=== PATIENT | male | born 1980 | race Caucasian/White ===

== ENCOUNTER 2025-09-11 19:58 | Inpatient (IN) | payer SELFPAY ==
[~2025-09-11] VITALS: Ht 165.1 cm; Wt 92.0 kg
--- NOTE | 2025-09-11 21:05 | ECG ---
[facility] Test Date: 2025-09-11 Test Time: 21:03:39 Pat Name: PATY STOCKTON Department: [facility] ED Room: 0287T Gender: M Procedural Nurse: CRISTOPHER : 1980 Requested By: MARK MONTALVO Order Number: [id number] Reading MD: Husam Colmenares Measurements Intervals [place] Rate: 67 P: 10 TX: 161 QRS: 19 QRSD: 88 T: 30 QT: 376 QTc: 397 Interpretive Statements Sinus rhythm Electronically Signed On 09-12-2025 17:26:31 PST by Husam Colmenares Please click the below link to view image of tracing.
--- NOTE | 2025-09-11 21:06 | ED.PDOC ---
HPI Comments HPI: Patient reports on having had chest pain for the past three days and has been worsening since associated with a cough, shortness a breath and left arm pain which started today, prompting him to come to the ER. Past Medical History: Tobacco abuse Past Surgical History: Appendectomy Social History: Tobacco use (last use was two days ago), occasional alcohol use Allergies: Penicillin, tetracycline Family history: Neither parents have any CAD but grandparent has heart problems HPI: Poor Historian. 45-year-old male presents to emergency department for evaluation of midsternal chest pain for the last three days constant with the one episode of cough. Patient complains of some associated mild shortness of breath when he was coughing. REVIEW OF SYSTEMS: CONSTITUTIONAL: Denies acute: fever, diaphoresis, chills, generalized weakness. HEAD: Denies acute: headache, photophobia Eyes: Denies acute: Double vision, vision loss, eye pain, eye discharge. EARS: Denies acute: tinnitus, hearing loss, ear discharge, ear pain, THROAT: Denies acute: sore throat, swelling, difficulty swallowing , pain with swallowing, change in voice. NECK: Denies acute: neck pain, neck swelling, stiff neck. HEART: Denies acute : palpitations, LUNGS: Denies acute: wheezing, cough, hemoptysis ABDOMEN: Denies acute: abdominal pain, Nausea, Vomiting, diarrhea, melena , hematemesis, hematochezia SKIN: Denies acute: rash, redness, lesions, itchiness. EXTREMITIES: Denies acute: calf pain, numbness, tingling, weakness, denies pain in extremity. Denies acute: Low back pain. Neuro: Denies acute: focal neurological deficit, motor or sensory focal neurological deficit, tremors, seizure like activity, confusion, dizziness, change in mental status, loss of bowel or bladder function, cauda equina like symptoms. : Denies acute: dysuria, hematuria, flank pain, increase in urinary frequency. PSYCH: Denies acute: hallucination, suicidal ideation, homicidal ideation. PHYSICAL EXAM: General: ----no----acute distress, awake and alert. Head: normocephalic, atraumatic. No raccoon's eyes, no traylor sign. Neck: supple, trachea is midline, no swelling. Throat: Normal phonation. Eyes:, no erythema, no purulent discharge, no proptosis, no icterus. Heart: regular rate, regular rhythm, no significant murmur appreciated. Lungs: no apparent respiratory distress, Able to speak in full sentences. No wheezing, no rhonchi, no crackles. No stridors Clear to auscultation bilaterally. Abdomen: non tender to palpation, non distended, soft, no guarding, no rebound, + bowel sounds. Neuro: Awake, Alert, oriented to name, self, situation, follows commands GCS=15. Speech is normal. Skin: no petechia, no purpura, no cyanosis, non-pale, not jaundice. Lower extremities: --no - Pitting edema no deformity, no focal swelling, no calf TTP. Makes eye contact. moves all four extremities. Face: no apparent facial droop. Ambulating in the ED independently. ED COURSE: DISCLAIMER: This medical document was created using an electronic medical record system with voice recognition software and computerized dictation system. Although this document has been carefully reviewed, there might still be some phonetic and typographical errors. Occasional wrong-word or "sound-alike" substitutions may have occurred due to the inherent limitations of voice recognition software. These areas are purely typographical due to imperfections of the software programs and do not reflect any compromise in the patient's medical care. Please read the chart carefully and recognize, using context, where these substitutions have occurred. Chief Complaint: Shortness of Breath Time Seen by MD: 21:00 Reviewed Notes: Nurses Notes, Medications, Allergies Allergies: Coded Allergies: Penicillins (Verified Allergy, Unknown, 09/11/25) Tetracycline (Verified Allergy, Unknown, 09/11/25) Information Source: Patient Mode of Arrival: Ambulatory Was a procedure done? Was a procedure done?: No X-Ray, Labs, Meds, VS Vital Signs Date Time Temp Pulse Resp B/P (MAP) Pulse Ox O2 Delivery O2 Flow Rate FiO2 09/11/25 21:03 67 09/11/25 20:02 98.0 78 16 112/81 98 98.0 Lab Test 09/11/25 21:08 Range/Units White Blood Count 5.9 4.4-10.8 10^3/uL Red Blood Count 4.76 4.5-5.90 10^6/uL Hemoglobin 15.3 13.5-17.5 g/dL Hematocrit 43.3 41.0-53.0 % Mean Corpuscular Volume 91.0 80.0-100.0 fL Mean Corpuscular Hemoglobin 32.1 H 28.0-32.0 pg Mean Corpuscular Hemoglobin Concent 35.3 32.0-36.0 g/dL Red Cell Distribution Width 12.5 11.8-14.3 % Platelet Count 339 140-450 10^3/uL Mean Platelet Volume 6.6 L 6.9-10.8 fL Neutrophils (%) (Auto) 49.9 37.0-80.0 % Lymphocytes (%) (Auto) 39.2 10.0-50.0 % Monocytes (%) (Auto) 8.4 0.0-12.0 % Eosinophils (%) (Auto) 1.4 0.0-7.0 % Basophils (%) (Auto) 1.1 0.0-2.0 % Neutrophils # (Auto) 2.9 1.6-8.6 10 ^3/uL Lymphocytes # (Auto) 2.3 0.4-5.4 10 ^3/uL Monocytes # (Auto) 0.5 0-1.3 10 ^3/uL Eosinophils # (Auto) 0.1 0-0.8 10 ^3/uL Basophils # (Auto) 0.1 0-0.2 10 ^3/uL Nucleated Red Blood Cells 0.1 % D-Dimer, Quantitative Pending Sodium Level Pending Potassium Level Pending Chloride Level Pending Carbon Dioxide Level Pending Anion Gap Pending Blood Urea Nitrogen Pending Creatinine Pending Glomerular Filtration Rate Calc Pending BUN/Creatinine Ratio Pending Serum Glucose Pending Calcium Level Pending Total Bilirubin Pending Aspartate Amino Transferase (AST) Pending Alanine Aminotransferase (ALT) Pending Alkaline Phosphatase Pending Troponin I High Sensitivity Pending B-Type Natriuretic Peptide Pending Total Protein Pending Albumin Pending Time of 1ST Reevaluation: 21:30 Reevaluation 1ST: Unchanged Patient Education/Counseling: Diagnosis, Treatment Family Education/Counseling: No Family Present SEPSIS Sepsis Screen Date sepsis recognized/suspect: Sep 11, 2025 Time Sepsis recognized/suspect: 2003 Recent Procedure: No On Antibiotic Therapy: No Respiratory Rate >20: No Heart Rate >90: No Temp<36 C (96.8 F) or >38.3 C: No SBP <90 or MAP <65 mmHG: No New Acute Mental Status Change: No Is the patient on CPAP, BIPAP,: No Physician Orders Delivery Table Operator (09/11/25 ) B-Type Natriuretic Peptide (09/11/25 20:59) Comprehensive Metabolic Panel (09/11/25 20:59) D-Dimer (09/11/25 20:59) Troponin-I Hs (09/11/25 20:59) Chest Portable (09/11/25 20:59) Troponin-I Hs (09/11/25 21:59) Troponin-I Hs (09/11/25 23:59) Electrocardigram (09/11/25 21:59) Electrocardigram (09/11/25 23:59) Vital Signs Date Time Temp Pulse Resp B/P (MAP) Pulse Ox O2 Delivery O2 Flow Rate FiO2 09/11/25 21:03 67 09/11/25 20:02 98.0 78 16 112/81 98 98.0 Laboratory Tests Test 09/11/25 21:08 White Blood Count 5.9 10^3/uL (4.4-10.8) Critical Care Note Critical Care Time?: No I personally scribed for MARK MONTALVO DO ([email or web address]) on 09/11/25 at 21:06. Electronically submitted by Bandar Guevara ([email or web address]). MARK MONTALVO DO Sep 11, 2025 21:06
[2025-09-11 21:25] LABS: Hematocrit 43.3 % (41.0-53.0); Hemoglobin 15.3 g/dL (13.5-17.5); Mean Corpuscular Hemoglobin 32.1 pg (28.0-32.0); Mean Corpuscular Volume 91.0 fL (80.0-100.0); Nucleated Red Blood Cells % 0.1 %
--- NOTE | 2025-09-11 21:45 | DVH ---
CLINICAL HISTORY: Shortness of breath/chest pain. TECHNIQUE: Single frontal view of the chest was obtained. COMPARISON: None available. FINDINGS: DEVICES/LINES/TUBES: None. LUNGS: Clear. PLEURA: No pneumothorax or pleural effusion. MEDIASTINUM/OTHER: Normal heart size and mediastinal contours. Trachea is midline. BONES: Unremarkable. UPPER ABDOMEN: Unremarkable. IMPRESSION: No acute cardiopulmonary process.
[2025-09-11 21:54] LABS: Alanine Aminotransferase 52 U/L (7-40); Albumin 4.5 g/dL (3.2-4.8); Alkaline Phosphatase 77 U/L (46-116); Anion Gap 9 (5-15); BUN/Creatinine Ratio 11.8 (10.0-20.0); Bilirubin, Total 0.6 mg/dL (0.2-1.0); Blood Urea Nitrogen 11 mg/dL (9-23); Calcium 9.8 mg/dL (8.7-10.4); Carbon Dioxide 27 mmol/L (20-31); Chloride 106 mmol/L (98-107); Glucose 99 mg/dL (74-106); Potassium 4.2 mmol/L (3.5-5.1); Sodium 142 mmol/L (136-145); Total Protein 7.5 g/dL (5.7-8.2)
--- NOTE | 2025-09-11 22:06 | ECG ---
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
[2025-09-11 22:20] VITALS: PULSE 76; RESP 16; O2SAT 96
[2025-09-11] MEDS: ASPirin-EC 325mg tab PO ONE (22:45)
[2025-09-11] MEDS: IPRATROPIUM BROM 0.5 MG/2.5ML INH SOL NEB ONE (22:45)
[2025-09-11] MEDS: ALBUTEROL SULF 2.5 MG/0.5ML(0.5%) NEB SOLN NEB ONE (22:45)
[2025-09-11] MEDS: IPRATROPIUM BROM 0.5 MG/2.5ML INH SOL ONE (22:52)
[2025-09-11] MEDS: ALBUTEROL SULF 2.5 MG/0.5ML(0.5%) NEB SOLN ONE (22:52)
[2025-09-12] VITALS (8 sets, daily range): BP systolic 113–135; BP diastolic 82–93; PULSE 49–75; RESP 17–18; TEMP 97.1–98.3; O2SAT 97–99
--- NOTE | 2025-09-12 04:44 | DVHHP2 ---
History of Present Illness Reason for Visit: Chest pain History of Present Illness 45-year-old male presents for evaluation of chest pain. Patient reports a three day history of developing chest pain. Patient reports developing left-sided sharp chest pain radiating to his left arm while walking his dog. Denies any previous medical problems. The patient is not currently taking any medications. He also reports having some shortness for breath with dizziness. Past Medical History Denies Past Surgical History Denies Family History Noncontributory Smoke: <1 pack per day ALCOHOL: occassional Drugs: None Lives: with Family Review of Systems Review of Systems Review of systems are currently negative otherwise addressed in HPI. Allergies: Coded Allergies: Penicillins (Verified Allergy, Unknown, 09/11/25) Tetracycline (Verified Allergy, Unknown, 09/11/25) Exam Vital Signs Vital Signs Date Time Temp Pulse Resp B/P (MAP) Pulse Ox O2 Delivery O2 Flow Rate FiO2 09/12/25 02:26 98.1 67 16 128/86 (100) 97 98.1 09/11/25 23:12 Room Air* 0 21 Exam Gen: 45-year-old male in mild distress Skin: Warm, dry, normal color and texture, no rash. HEENT: Normocephalic atraumatic, mucous membranes moist and pink. Neck: Cervical and supraclavicular nodes normal without enlargement, trachea is midline, thyroid gland is normal without masses. Pulmonary: Clear to auscultation and percussion bilaterally. Cardiac: Regular rate and rhythm. No murmur Abdomen: Soft, nontender, nondistended, bowel sounds present all 4 quadrants, no guarding, no rigidity, no organomegaly. Extremities: No cyanosis, clubbing, no edema Neuro: Cranial nerves II through XII grossly intact, normal affect and speech, no focal motor deficits. Labs/Xrays AGE / SEX: 45 / M ADM STATUS: REG ER SERVICE 58 ORDERING PHYSICIAN: MARK MONTALVO DO PROCEDURE(s): CXRP - CHEST PORTABLE REASON: sob/cp ORDER NUMBER(s): [id number], ACCESSION NUMBER(s): [id number] CLINICAL HISTORY: Shortness of breath/chest pain. TECHNIQUE: Single frontal view of the chest was obtained. COMPARISON: None available. FINDINGS: DEVICES/LINES/TUBES: None. LUNGS: Clear. PLEURA: No pneumothorax or pleural effusion. MEDIASTINUM/OTHER: Normal heart size and mediastinal contours. Trachea is midline. BONES: Unremarkable. UPPER ABDOMEN: Unremarkable. IMPRESSION: No acute cardiopulmonary process. Labs Test 09/11/25 22:01 09/11/25 21:08 Range/Units Troponin I High Sensitivity < 3 L </=54 ng/L White Blood Count 5.9 4.4-10.8 10^3/uL Red Blood Count 4.76 4.5-5.90 10^6/uL Hemoglobin 15.3 13.5-17.5 g/dL Hematocrit 43.3 41.0-53.0 % Mean Corpuscular Volume 91.0 80.0-100.0 fL Mean Corpuscular Hemoglobin 32.1 H 28.0-32.0 pg Mean Corpuscular Hemoglobin Concent 35.3 32.0-36.0 g/dL Red Cell Distribution Width 12.5 11.8-14.3 % Platelet Count 339 140-450 10^3/uL Mean Platelet Volume 6.6 L 6.9-10.8 fL Neutrophils (%) (Auto) 49.9 37.0-80.0 % Lymphocytes (%) (Auto) 39.2 10.0-50.0 % Monocytes (%) (Auto) 8.4 0.0-12.0 % Eosinophils (%) (Auto) 1.4 0.0-7.0 % Basophils (%) (Auto) 1.1 0.0-2.0 % Neutrophils # (Auto) 2.9 1.6-8.6 10 ^3/uL Lymphocytes # (Auto) 2.3 0.4-5.4 10 ^3/uL Monocytes # (Auto) 0.5 0-1.3 10 ^3/uL Eosinophils # (Auto) 0.1 0-0.8 10 ^3/uL Basophils # (Auto) 0.1 0-0.2 10 ^3/uL Nucleated Red Blood Cells 0.1 % D-Dimer, Quantitative < 0.19 0.0-0.49 mg/L FEU Sodium Level 142 136-145 mmol/L Potassium Level 4.2 3.5-5.1 mmol/L Chloride Level 106 98-107 mmol/L Carbon Dioxide Level 27 20-31 mmol/L Anion Gap 9 5-15 Blood Urea Nitrogen 11 9-23 mg/dL Creatinine 0.93 0.700-1.30 mg/dL Glomerular Filtration Rate Calc 102 >90 mL/min BUN/Creatinine Ratio 11.8 10.0-20.0 Serum Glucose 99 74-106 mg/dL Calcium Level 9.8 8.7-10.4 mg/dL Total Bilirubin 0.6 0.2-1.0 mg/dL Aspartate Amino Transferase (AST) 22 13-40 U/L Alanine Aminotransferase (ALT) 52 H 7-40 U/L Alkaline Phosphatase 77 46-116 U/L B-Type Natriuretic Peptide 1.95 0-100 pg/mL Total Protein 7.5 5.7-8.2 g/dL Albumin 4.5 3.2-4.8 g/dL SEPSIS Sepsis Screen Date sepsis recognized/suspect: Sep 11, 2025 Time Sepsis recognized/suspect: 2219 Recent Procedure: No On Antibiotic Therapy: No Respiratory Rate >20: No Heart Rate >90: No Temp<36 C (96.8 F) or >38.3 C: No SBP <90 or MAP <65 mmHG: No New Acute Mental Status Change: No Is the patient on CPAP, BIPAP,: No Physician Orders Store Detective (09/11/25 ) Chest Portable (09/11/25 20:59) Electrocardigram (09/11/25 23:59) Thyroid Stimulating Hormone (09/12/25 04:38) Aspirin Tablet (09/12/25 10:00) Admit (09/12/25 04:38) Temazepam (Restoril) (09/12/25 04:45) Ondansetron Hcl (Zofran) (09/12/25 04:45) Cardiac Diet-2gna,Lofat,Lochol (09/12/25 Breakfast) Echo 2d Mode Cardiac Dop (09/12/25 04:38) Condition: Fair (09/12/25 04:38) Acetaminophen Tablet (Tylenol Tablet) (09/12/25 04:45) Bedrest With Bathroom Privileg (09/12/25 04:38) Nitroglycerin Sublingual (Ntrostat Subli (09/12/25 04:45) Morphine Sulfate Injection (09/12/25 04:45) Stat Ekg For Chest Pain (09/12/25 04:38) Notify Md Of Changes From Base (09/12/25 04:38) Extractor Machine Operator For 24 Hours (09/12/25 04:38) Emergency Dysrhythmia Protocol (09/12/25 04:38) Rhythm Strips Once Every Shift (09/12/25 04:38) Oxygen By Nasal Cannula (09/12/25 04:38) Vital Signs Date Time Temp Pulse Resp B/P (MAP) Pulse Ox O2 Delivery O2 Flow Rate FiO2 09/12/25 02:26 98.1 67 16 128/86 (100) 97 98.1 09/11/25 23:12 20 100 Room Air* 0 21 09/11/25 22:20 98.3 75 15 137/76 (96) 98 98.3 09/11/25 22:20 76 16 96 Room Air* 0 21 09/11/25 22:04 70 09/11/25 21:03 67 Laboratory Tests Test 09/11/25 21:08 White Blood Count 5.9 10^3/uL (4.4-10.8) Medications Medications Dose Ordered Sig/Saloni Route Start Time Stop Time Status Last Admin Dose Admin Aspirin 325 mg ONCE ONCE PO 09/11/25 21:00 09/11/25 21:02 DC 09/11/25 22:45 325 MG Assessment/Plan Assessment/Plan Assessment Chest pain rule out ACS Plan Admit the patient to telemetry to the hospitalist Echocardiogram pending Continue treatment per orders. Plan discussed with: Patient My Orders Orders - FAITH FOX Procedure Category Date Status Time Thyroid Stimulating LAB 09/12/25 Transmitted Hormone 04:38 Aspirin Tablet PHA 09/12/25 Transmitted 10:00 Admit ADMIT 09/12/25 Transmitted 04:38 Temazepam (Restoril) PHA 09/12/25 Transmitted 04:45 Ondansetron Hcl PHA 09/12/25 Transmitted (Zofran) 04:45 Cardiac DIET 09/12/25 Transmitted Diet-2gna,Lofat,Lochol Breakfast Echo 2d Mode Cardiac US 09/12/25 Logged DOP 04:38 Condition: Fair MINAL 09/12/25 In Process 04:38 Acetaminophen Tablet PHA 09/12/25 Transmitted (Tylenol Tablet) 04:45 Bedrest With Bathroom MINAL 09/12/25 In Process Privileg 04:38 Nitroglycerin [facility] 09/12/25 Transmitted Sublingual (Ntrostat 04:45 Morphine Sulfate PHA 09/12/25 Transmitted Injection 04:45 Stat Ekg For Chest [facility] 09/12/25 In Process Pain 04:38 Notify Md Of Changes [facility] 09/12/25 In Process From Base 04:38 Extractor Machine Operator For [facility] 09/12/25 In Process 24 Hours 04:38 Emergency Dysrhythmia [facility] 09/12/25 In Process Protocol 04:38 Rhythm Strips Once [facility] 09/12/25 In Process Every Shift 04:38 Oxygen By Nasal RT 09/12/25 Transmitted Cannula 04:38 Date of Service: Sep 12, 2025 Billing Provider: FAITH FOX Common Visit Codes: [id number] INP/OBS CARE (HIGH) FAITH FOX Sep 12, 2025 04:44
[2025-09-12] MEDS ORDERED: NITROGLYCERIN 0.4 MG SL TAB SL PRN (04:45)
[2025-09-12] MEDS ORDERED: ONDANSETRON HCL 4 MG/2 ML VIAL IV PRN (04:45)
[2025-09-12] MEDS ORDERED: TEMAZEPAM 15 MG CAP PO PRN (04:45)
[2025-09-12] MEDS ORDERED: MORPHINE SULFATE 4 MG/ML SYR/VIAL IV PRN (04:45)
[2025-09-12] MEDS: ASPirin-EC 81 mg tab PO ONE (12:50)
--- NOTE | 2025-09-12 14:19 | DVHINCON2 ---
Date Seen: Sep 12, 2025 Referring Physician MD Martita Reason for Consultation Chest pain History of Present Illness This is a 45-year-old male patient who presents to emergency room with chief complaint of chest pain. The patient reports that the chest pain began approximately three days ago. He describes it as unprovoked, intermittent, pressure-like and also sharp in nature, left-sided with radiation down his left arm. He denies any aggravating or alleviating factors. Associated symptoms include occasional shortness of breath. Serial troponin levels have been negative. Initial twelve lead electrocardiogram reveals normal sinus rhythm without any significant ST segment changes. Significant past medical history includes nicotine use and obesity. The patient reports significant familial cardiac history including his maternal grandfather who underwent a quadruple vessel CABG. The patient denies any previous cardiac workup. Past Medical History Past medical history reviewed. No other significant than mentioned above. Past Surgical History Appendectomy Family History: Coronary artery bypass graft maternal grandfather, Onset:50's - 60 Family History Family history reviewed. Social History Vapes nicotine Denies illicit drug use Admits to social alcohol use Allergies: Coded Allergies: Penicillins (Verified Allergy, Unknown, 09/11/25) Tetracycline (Verified Allergy, Unknown, 09/11/25) Home Meds Denies taking any prescribed medications or [id number] medications Current Medications Current Medications Medications (Trade) Dose Ordered Sig/Saloni Route PRN Reason Start Time Stop Time Status Last Admin Aspirin 81 mg DAILY PO 09/12/25 10:00 09/12/25 12:31 DC Temazepam (Restoril) 15 mg QHSP PRN PO FOR INSOMNIA 09/12/25 04:45 Ondansetron HCl (Zofran) 4 mg Q4HP PRN IV NAUSEA / VOMITING 09/12/25 04:45 Acetaminophen (Tylenol Tablet) 650 mg Q6HP PRN PO PAIN SCALE 1-3 OR TEMP>100.4 09/12/25 04:45 Nitroglycerin (Ntrostat Sublingual) 0.4 mg Q5MINP PRN SL FOR CHEST PAIN 09/12/25 04:45 Morphine Sulfate 2 mg Q30M PRN IV FOR CHEST PAIN 09/12/25 04:45 Aspirin (Ecotrin Enteric Coated Tablet) 81 mg DAILY PO 09/13/25 10:00 Review of Systems Constitutional: No symptom reported Ears, Nose, & Throat: No symptom reported Eyes: No symptom reported Neurological: No symptoms reported Pulmonary/Respiratory: No symptoms reported Cardiovascular: Chest pain Gastrointestinal: No symptom reported Genitourinary: No symptom reported Musculoskeletal: No symptom reported Skin: No symptom reported Psychiatric: No symptom reported Endocrine: No symptom reported Hematologic/Lymphatic: No symptom reported Vital Signs Vital Signs Date Time Temp Pulse Resp B/P (MAP) Pulse Ox O2 Delivery O2 Flow Rate FiO2 09/12/25 09:10 98.3 59 17 113/84 (94) 99 98.3 09/12/25 08:00 Room Air* 0 21 Physical Exam General Appearance: Cooperative. Well-developed. Well-nourished. No acute distress. Pulmonary/Respiratory: Clear, bilateral breaths sounds. Cardiovascular/Chest: Regular rate and rhythm. Peripheral Pulses: 2+ Radial (R). 2+ Radial (L). 2+ Pedal (R). 2+ Pedal (L) Abdominal Exam: Normal bowel sounds. Ankle Exam: Negative ankle edema Lower extremities: Negative lower extremity edema Neuro/Mental Status: A/OX4, coherent. Thoughts/Psych: Normal thought pattern. Appropriate mood and affect. Good judgment and insight. Appearance: No acute distress. Skin Exam: Normal inspection. Normal color. Warm and dry. Labs/Diagnostic Data Labs Test 09/12/25 09:41 09/11/25 22:01 09/11/25 21:08 Range/Units Thyroid Stimulating Hormone (TSH) 1.00 0.55-4.78 uIU/mL Troponin I High Sensitivity < 3 L </=54 ng/L White Blood Count 5.9 4.4-10.8 10^3/uL Red Blood Count 4.76 4.5-5.90 10^6/uL Hemoglobin 15.3 13.5-17.5 g/dL Hematocrit 43.3 41.0-53.0 % Mean Corpuscular Volume 91.0 80.0-100.0 fL Mean Corpuscular Hemoglobin 32.1 H 28.0-32.0 pg Mean Corpuscular Hemoglobin Concent 35.3 32.0-36.0 g/dL Red Cell Distribution Width 12.5 11.8-14.3 % Platelet Count 339 140-450 10^3/uL Mean Platelet Volume 6.6 L 6.9-10.8 fL Neutrophils (%) (Auto) 49.9 37.0-80.0 % Lymphocytes (%) (Auto) 39.2 10.0-50.0 % Monocytes (%) (Auto) 8.4 0.0-12.0 % Eosinophils (%) (Auto) 1.4 0.0-7.0 % Basophils (%) (Auto) 1.1 0.0-2.0 % Neutrophils # (Auto) 2.9 1.6-8.6 10 ^3/uL Lymphocytes # (Auto) 2.3 0.4-5.4 10 ^3/uL Monocytes # (Auto) 0.5 0-1.3 10 ^3/uL Eosinophils # (Auto) 0.1 0-0.8 10 ^3/uL Basophils # (Auto) 0.1 0-0.2 10 ^3/uL Nucleated Red Blood Cells 0.1 % D-Dimer, Quantitative < 0.19 0.0-0.49 mg/L FEU Sodium Level 142 136-145 mmol/L Potassium Level 4.2 3.5-5.1 mmol/L Chloride Level 106 98-107 mmol/L Carbon Dioxide Level 27 20-31 mmol/L Anion Gap 9 5-15 Blood Urea Nitrogen 11 9-23 mg/dL Creatinine 0.93 0.700-1.30 mg/dL Glomerular Filtration Rate Calc 102 >90 mL/min BUN/Creatinine Ratio 11.8 10.0-20.0 Serum Glucose 99 74-106 mg/dL Calcium Level 9.8 8.7-10.4 mg/dL Total Bilirubin 0.6 0.2-1.0 mg/dL Aspartate Amino Transferase (AST) 22 13-40 U/L Alanine Aminotransferase (ALT) 52 H 7-40 U/L Alkaline Phosphatase 77 46-116 U/L B-Type Natriuretic Peptide 1.95 0-100 pg/mL Total Protein 7.5 5.7-8.2 g/dL Albumin 4.5 3.2-4.8 g/dL Assessment Chest pain, rule out coronary ischemia Rule out structural heart disease Hyperlipidemia, newly diagnosed Obese Significant familial cardiac history Plan/Recommendation We will continue with the following plan/recommendations (Dr. Colmenares): * Transthoracic echocardiogram to evaluate cardiac function * Chest pain protocol * HEART score: 3 points * Single antiplatelet therapy and lipid-lowering agent * Blood pressure control * Close cardiac surveillance * Nuclear stress test We will proceed with obtaining a transthoracic echocardiogram to evaluate cardiac function and assess for any wall motion abnormalities. Given patient's clinical presentation, comorbidities, and significant familial cardiac history, we will proceed with a nuclear stress test. The patient is agreeable to undergo stress testing as it was explained to the patient. We will schedule the patient at soonest availability. Thank you for allowing us to care for this patient. P mikayla call with any questions or concerns. Critical care time spent: 44 minutes Plan discussed with: Patient NYHA Physical activity limitations: NA Date of Service: Sep 12, 2025 Billing Provider: AISHWARYA DUNBAR Cardiology Common Codes: [id number] INP/OBS CARE (High) Cardiology Consultation Codes: [id number] CONSULT <45MIN AISHWARYA DUNBAR Sep 12, 2025 14:19
[2025-09-12 15:03] LABS: Triglycerides 137.0 mg/dL (< 150)
[2025-09-12 15:04] LABS: Magnesium 2.2 mg/dL (1.6-2.6)
[2025-09-12 15:05] LABS: Cholesterol 187.0 mg/dL (< 200); HDL Cholesterol 51.0 mg/dL (40-59)
[2025-09-12] MEDS: ATORVASTATIN 20 MG TAB PO SCH (21:13)
[2025-09-13] VITALS (9 sets, daily range): BP systolic 113–153; BP diastolic 58–89; PULSE 59–83; RESP 16–20; TEMP 97.5–98.3; O2SAT 96–98
[2025-09-13 06:31] LABS: Amphetamine Screen, Urine Neg (NEGATIVE); Barbiturate Scree,Urine Neg (NEGATIVE); Benzodiazephine Screen, Urine Neg (NEGATIVE); Cannabinoid Screen, Urine Neg (NEGATIVE); Cocaine Screen, Urine Neg (NEGATIVE); Opiate Scree,Urine Neg (NEGATIVE); Phencyclidine Screen, Urine Neg (NEGATIVE)
[2025-09-13] MEDS: REGADENOSON 0.4 MG/5 ML SYRG IV ONE ×2 (08:43→09:12)
[2025-09-13] MEDS: ASPirin-EC 81 mg tab PO SCH (10:03)
--- NOTE | 2025-09-13 14:32 | DVHPN2 ---
Subjective The patient seen and examined at bedside. No complains today. Waiting for stress test. Reviewed: Care Plan, H&P, Labs, Medications, Previous Orders, Radiology Changes from previous H/P or p: No Changes Objective Vitals Vital Signs Date Time Temp Pulse Resp B/P (MAP) Pulse Ox O2 Delivery O2 Flow Rate FiO2 09/13/25 12:36 98.2 60 19 120/85 (97) 97 98.2 09/13/25 08:00 Room Air* 0 21 Intake/Output Intake and Output 09/13/25 07:00 Intake Total 2729 ml Balance 2729 ml Intake Oral 2729 ml # Voids 4 # Bowel Movements 1 General Appearance: Alert, Oriented X3, Cooperative, No acute distress HEENT: Atraumatic, PERRLA, EOMI, Mucous membr. moist/pink Neck: Supple Lungs: Clear to auscultation, Normal air movement Cardiovascular: Regular rate, Normal S1, Normal S2, No murmurs, Gallops, Rubs Abdomen: Normal bowel sounds, Soft, No tenderness Neuro: Cranial nerves 3-12 NL Psych/Mental Status: Mental status NL Medications Current Medications Medications Dose Ordered Sig/Saloni Route Start Time Stop Time Status Last Admin Dose Admin Temazepam 15 mg QHSP PRN PO 09/12/25 04:45 Ondansetron HCl 4 mg Q4HP PRN IV 09/12/25 04:45 Acetaminophen 650 mg Q6HP PRN PO 09/12/25 04:45 Nitroglycerin 0.4 mg Q5MINP PRN SL 09/12/25 04:45 Morphine Sulfate 2 mg Q30M PRN IV 09/12/25 04:45 Aspirin 81 mg DAILY PO 09/13/25 10:00 09/13/25 10:03 81 MG Atorvastatin Calcium 20 mg HS PO 09/12/25 22:00 09/12/25 21:13 20 MG Laboratory Results Laboratory Tests 09/11/25 21:08 Labs and/or images reviewed: Labs reviewed by me Assessment/Plan Assessment/Plan Chest pain, rule out coronary ischemia Rule out structural heart disease Hyperlipidemia Obese Significant familial cardiac history Continue current management Continue statin Waiting for stress test 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 Advise exercise and weight loss. Plan discussed with: Patient Date of Service: Sep 13, 2025 Billing Provider: SATISH WHITNEY MD Common Visit Codes: [id number] INP/OBS CARE(HIGH) SATISH WHITNEY MD Sep 13, 2025 14:32
[2025-09-13] MEDS: ACETAMINOPHEN 325 MG TAB PO PRN (16:01)
[2025-09-14 01:00] VITALS: BP 138/84; PULSE 67; RESP 18; TEMP 98.8; O2SAT 96
[2025-09-14 05:00] VITALS: BP 123/82; PULSE 63; RESP 17; TEMP 98.1; O2SAT 97
[2025-09-14 08:00] VITALS: PULSE 70; RESP 18
[2025-09-14 09:08] VITALS: BP 133/92; PULSE 62; RESP 16; TEMP 97.8; O2SAT 98
--- NOTE | 2025-09-14 09:44 | DVHPN2 ---
Consult Progress Note Date Seen: Sep 14, 2025 Subjective Review of Systems: CVS:Normal, RESPIRATORY:Normal, NEURO:Normal Objective vital signs Vital Sign Date Time Temp Pulse Resp B/P (MAP) Pulse Ox O2 Delivery O2 Flow Rate FiO2 09/14/25 09:08 97.8 62 16 133/92 (106) 98 97.8 09/14/25 08:00 Room Air* 0 21 Total Intake and Output 09/13/25 09/13/25 09/14/25 15:00 23:00 07:00 Intake Total 0 ml 800 ml 1200 ml Balance 0 ml 800 ml 1200 ml medications Current Medications Medications Dose Ordered Sig/Saloni Route Start Time Stop Time Status Last Admin Dose Admin Temazepam 15 mg QHSP PRN PO 09/12/25 04:45 Ondansetron HCl 4 mg Q4HP PRN IV 09/12/25 04:45 Acetaminophen 650 mg Q6HP PRN PO 09/12/25 04:45 09/13/25 16:01 650 MG Nitroglycerin 0.4 mg Q5MINP PRN SL 09/12/25 04:45 Morphine Sulfate 2 mg Q30M PRN IV 09/12/25 04:45 Aspirin 81 mg DAILY PO 09/13/25 10:00 09/14/25 09:02 81 MG Atorvastatin Calcium 20 mg HS PO 09/12/25 22:00 09/13/25 20:51 20 MG Examination: LUNGS:Normal, CVS:Normal, NEURO:Normal laboratory and microbiology Laboratory Tests 09/11/25 21:08 Test 09/11/25 21:08 Range/Units Serum Glucose 99 74-106 mg/dL Problem List/Assessment/Plan Problem List/Assessment/Plan Chest pain, rule out coronary ischemia Rule out structural heart disease Significant familial cardiac history Hyperlipidemia, newly diagnosed Obesity Plan/Recommendation (Dr. Colmenares) * Transthoracic echocardiogram revealed a LVEF 55% * Nuclear stress test, preliminary non-ischemic as reviewed by Dr. Mosquera * Recommend diet and exercise for lipid and weight management Kindly call if in need of further recommendations. Signing off at this time. Thank you for allowing us to participate in this patient's care. This medical document was created using an electronic medical record system with voice recognition software and computerized dictation system. Although this document has been carefully reviewed, there might still be some phonetic and typographical errors. Occasional wrong-word or ``sound-alike substitutions may have occurred due to the inherent limitations of voice recognition software. These areas are purely typographical due to imperfections of the software programs and do not reflect any compromise in the patient's medical care. Please read the chart carefully and recognize, using context, where these substitutions have occurred. Plan discussed with: Patient, Other Date of Service: Sep 14, 2025 Billing Provider: FRANCES ARANGO Cardiology Common Codes: [id number] HOSP CARE(High FRANCES ARANGO Sep 14, 2025 09:44
--- NOTE | 2025-09-14 12:32 | DVHSR ---
APPROVED REPORT EXAM: Two-dimensional and M-mode echocardiogram with Doppler and color Doppler. Blood Pressure: 130/93 mmHg INDICATION Chest Pain RISK FACTORS Height: 5'5, Weight: 202 DIMENSIONS LVDd 3.7 (3.8-5.7cm) LA (2D) 3.9 (1.9-4.0cm) Aortic Root 3.8 (2.0-3.7cm) LVDs 2.2 (2.5-4.0cm) LA (MM) (1.9-4.0cm) Aortic Cusp Exc 2.2 (1.5-2.0cm) EF (%) 55.0 (55-70%) Rt. Atrium 3.9 (1.9-4.0cm) Asc. Aorta cm IVSd 1.0 (0.7-1.1cm) RV (D) 3.5 (1.8-2.4cm) PWd 1.0 (0.7-1.1cm) Mitral Valve Mitral Mitral Stenosis E wave 0.74m/s MV Mean GR. mmHg A wave 0.83m/s MV Peak GR. mmHg E/A ratio 0.9 2D MVA cm2 DECEL Time 224ms PRESS 1/2 Time ms Aortic Valve Aortic Valve Aortic Stenosis V1 1.23m/s AO Mean GR. 5mmHg V2 1.33m/s AO Peak GR. 7mmHg LVOT Diameter 2.1 (1.8-2.4cm) Doppler JAYA 3.20cm2 Pulmonic Valve V2 0.81m/s Tricuspid Valve TR Velocity 2.64m/s RVSP 31mmHg Conclusion 1-Normal right and left ventricle systolic function with estimated ejection fraction of 55%. Normal LV wall motion. Normal LV diastolic function 2-No significant valvular pathology was seen
[2025-09-14 13:00] VITALS: BP 132/91; PULSE 64; RESP 16; TEMP 98; O2SAT 98
--- NOTE | 2025-09-14 14:45 | DVHDS2 ---
Discharge Summary Date of Admission Sep 12, 2025 at 04:38 Date of Discharge: Sep 14, 2025 Admitting Diagnosis chest pain Labs/Diagnostic Data: Laboratory Results Test 09/13/25 05:30 09/12/25 09:41 09/11/25 22:01 09/11/25 21:08 Urine Opiates Screen Neg (NEGATIVE) Urine Fentanyl Screen Neg (NEGATIVE) Urine Barbiturates Screen Neg (NEGATIVE) Urine Phencyclidine Screen Neg (NEGATIVE) Urine Amphetamines Screen Neg (NEGATIVE) Urine Benzodiazepines Screen Neg (NEGATIVE) Urine Cocaine Screen Neg (NEGATIVE) Urine Cannabinoids Screen Neg (NEGATIVE) Hemoglobin A1c 5.6 % A1C (<5.7) Magnesium Level 2.2 mg/dL (1.6-2.6) Triglycerides Level 137 mg/dL (< 150) Cholesterol Level 187 mg/dL (< 200) LDL Cholesterol 119 mg/dL (< 100) HDL Cholesterol 51 mg/dL (40-59) Thyroid Stimulating Hormone (TSH) 1.00 uIU/mL (0.55-4.78) Troponin I High Sensitivity < 3 ng/L (</=54) White Blood Count 5.9 10^3/uL (4.4-10.8) Red Blood Count 4.76 10^6/uL (4.5-5.90) Hemoglobin 15.3 g/dL (13.5-17.5) Hematocrit 43.3 % (41.0-53.0) Mean Corpuscular Volume 91.0 fL (80.0-100.0) Mean Corpuscular Hemoglobin 32.1 pg (28.0-32.0) Mean Corpuscular Hemoglobin Concent 35.3 g/dL (32.0-36.0) Red Cell Distribution Width 12.5 % (11.8-14.3) Platelet Count 339 10^3/uL (140-450) Mean Platelet Volume 6.6 fL (6.9-10.8) Neutrophils (%) (Auto) 49.9 % (37.0-80.0) Lymphocytes (%) (Auto) 39.2 % (10.0-50.0) Monocytes (%) (Auto) 8.4 % (0.0-12.0) Eosinophils (%) (Auto) 1.4 % (0.0-7.0) Basophils (%) (Auto) 1.1 % (0.0-2.0) Neutrophils # (Auto) 2.9 10 ^3/uL (1.6-8.6) Lymphocytes # (Auto) 2.3 10 ^3/uL (0.4-5.4) Monocytes # (Auto) 0.5 10 ^3/uL (0-1.3) Eosinophils # (Auto) 0.1 10 ^3/uL (0-0.8) Basophils # (Auto) 0.1 10 ^3/uL (0-0.2) Nucleated Red Blood Cells 0.1 % D-Dimer, Quantitative < 0.19 mg/L FEU (0.0-0.49) Sodium Level 142 mmol/L (136-145) Potassium Level 4.2 mmol/L (3.5-5.1) Chloride Level 106 mmol/L (98-107) Carbon Dioxide Level 27 mmol/L (20-31) Anion Gap 9 (5-15) Blood Urea Nitrogen 11 mg/dL (9-23) Creatinine 0.93 mg/dL (0.700-1.30) Glomerular Filtration Rate Calc 102 mL/min (>90) BUN/Creatinine Ratio 11.8 (10.0-20.0) Serum Glucose 99 mg/dL (74-106) Calcium Level 9.8 mg/dL (8.7-10.4) Total Bilirubin 0.6 mg/dL (0.2-1.0) Aspartate Amino Transferase (AST) 22 U/L (13-40) Alanine Aminotransferase (ALT) 52 U/L (7-40) Alkaline Phosphatase 77 U/L (46-116) B-Type Natriuretic Peptide 1.95 pg/mL (0-100) Total Protein 7.5 g/dL (5.7-8.2) Albumin 4.5 g/dL (3.2-4.8) Other Laboratory Tests 09/11/25 21:08 Brief Hx & Hospital Course: 45-year-old male presents for evaluation of chest pain. Patient reports a three day history of developing chest pain. Patient reports developing left-sided sharp chest pain radiating to his left arm while walking his dog. Denies any previous medical problems. The patient is not currently taking any medications. He also reports having some shortness for breath with dizziness. The patient was admitted. Work up for chest pain was done. The patient trop level x 3 is negative. The patient EKG is normal. The patient lipid profile is normal. The patient was seen by physical education instructor and stress test done show no ischemia. Echo showed:-Normal right and left ventricle systolic function with estimated ejection fraction of 55%. Normal LV wall motion. Normal LV diastolic function No significant valvular pathology was seen . The patient denies any chest pain today, so I will discharge the patient home. Advise the patient to follow up with PCP 1-2 weeks. The patient will follow up with follow up clinic for one time. Activity as tolerate. Diet: low salt , low cholesterol diet. General Appearance: Alert, Oriented X3, Cooperative, No acute distress HEENT: Atraumatic, PERRLA, EOMI, Mucous membr. moist/pink Neck: Supple Lungs: Clear to auscultation, Normal air movement Cardiovascular: Regular rate, Normal S1, Normal S2, No murmurs, Gallops, Rubs Abdomen: Normal bowel sounds, Soft, No tenderness Neuro: Cranial nerves 3-12 NL Psych/Mental Status: Mental status NL Condition at Discharge: Stable Final Diagnosis/Problems List chest pain ruled out ACS Asthma without exacerbation. Discharge Disposition: Home Discharge Instruct/Medications Diet: Regular Activity: No Restrictions, As Tolerated Follow Up/Referral: pcp 1-2 weeks. Scheduled PRN Albuterol Sulfate (Ventvictorino Caal), 90 MCG IN Q4HPRN PRN Discharge Statement: "Patient was advised to return to the ER or call 911 if any headaches, dizziness, shortness of breath, chest pain, abdominal pain, bleeding, fevers, or worsening of medical condition. Patient was counseled about treatment plan, medications, possible side effects, patientverbalized understanding. All questions were answered to the best of my ability. This discharge took greater then 30 minutes in planning, reviewing documentation, counseling the patient, and discussing with other team members." ASSESSMENT ASSESSMENT Assessment chest pain ruled out ACS Date of Service: Sep 14, 2025 Billing Provider: SATISH WHITNEY MD Common Visit Codes: 23896-ULR/OBS DISCH DAY >30min SATISH WHITNEY MD Sep 14, 2025 14:45
[2025-09-14] MEDS ORDERED: ALBUAER3 IN (15:07)
[2025-09-14 15:55] VITALS: BP 110/71; PULSE 75; RESP 18; TEMP 98.9; O2SAT 98
== END 2025-09-14 14:40 | disposition home or self-care (01) | DRG 313 ==
LOC: ER 19:58 → OVERFLOW 09-12 04:38 → TELE-WESTW 09-12 05:43
PROVIDERS: ADMIT Internal Medicine; ATTEND Internal Medicine
DX: R07.89 Other chest pain (principal); E66.9 Obesity, unspecified; E78.5 Hyperlipidemia, unspecified; F17.290 Nicotine dependence, other tobacco product, uncomplicated; Z68.33 Body mass index [BMI] 33.0-33.9, adult; Z90.49 Acquired absence of other specified parts of digestive tract; Z88.1 Allergy status to other antibiotic agents; Z88.0 Allergy status to penicillin
CPT/HCPCS: 36415; 71045; 80053; 80061; 80307; 83036; 83735; 83880; 84443; 84484; 85025; 85379; 93005; 93017; 93306; 94640; G0378